=== PATIENT | male | born 1960 | race Caucasian/White ===

== ENCOUNTER 2019-04-14 13:52 | Outpatient (CLI) | payer BC, SELFPAY | END 2019-04-14 13:53 | disposition home or self-care (01) | LOC: ANHAUDIO 13:55 | PROVIDERS: PCP Family Medicine; Referring Provider Otolaryngology; Visit Provider Otolaryngology | DX: H93.19 Tinnitus, unspecified ear (principal); H90.3 Sensorineural hearing loss, bilateral | CPT/HCPCS: 92557; 92567 ==

== ENCOUNTER → 2020-02-05 10:28 | Outpatient (CLI) | payer BC, SELFPAY ==
--- NOTE | ~2020-02-05 | MR_ITS ---
EXAMINATION: MR brain/brain stem wo/w con DATE: 02/05/2020 11:10 INDICATION: Worsening migraine headache. TECHNIQUE: Magnetic resonance imaging (MRI) of the brain and brainstem was performed without and with 14 mL MultiHance intravenous contrast. Sequences included sagittal and axial T1-weighted FSE, axial diffusion-weighted FS EPI, axial T2*-weighted GRE, axial T2-weighted FLAIR Propeller, and axial T2-we ighted Propeller. Postcontrast sequences included axial and coronal T1-weighted FSE. Apparent diffusi on coefficient (ADC) maps were created. COMPARISON: Brain MRI 01/26/2012 FINDINGS: Again seen is a small focus of increased T2-weighted signal intensity in the right frontal lobe subcortical white matter, which is within normal limits as an isolated finding. There is no intr acranial hemorrhage, acute infarction, or abnormal intracranial mass lesion. The ventricles are adilia l in size. The paranasal sinuses are clear. The orbits are normal. The mastoid air cells are normal. IMPRESSION: 1. Normal brain. Reviewed, dictated and finalized at location B. OF SCHOOL HOURS CARE WORKER IMPRESSION: 1. Normal brain.
[2020-02-05 10:57] LABS: Estimated Glomerular Filt Rate > 60
== END ==
PROVIDERS: PCP Family Medicine; Visit Provider Family Medicine
DX: G43.909 Migraine, unspecified, not intractable, without status migrainosus (principal)
CPT/HCPCS: 70553; A9577

== ENCOUNTER 2021-10-07 11:28 | Emergency (ER) | payer BC, SELFPAY ==
[2021-10-07 11:40] VITALS: BP 185/92; PULSE 72; RESP 16; TEMP 36.7; O2SAT 100
--- NOTE | 2021-10-07 12:05 | ED.HA ---
HPI - Headache General Chief Complaint: Headache Stated Complaint: Headache Time Seen by Provider: 10/07/21 12:07 Mode of arrival: ambulatory Limitations: no limitations History of Present Illness HPI Narrative: 61-year-old male presents with concern for acute headache and he is out of his headache medication. He reports history of tension headaches and migraines. He reports current headache started 3 days ago. He reports his primary doctor cannot see him today and he has no refills left. He was advised to go to urgent care. He reports he plans to call his primary care doctor on Sunday. He denies weakness in any extremity, thunderclap headache, vision changes, vomiting. Reports this is a typical headache for him. MD elicited complaint: headache Related Data Allergies Allergy/AdvReac Type Severity Reaction Status Date / Time No Known Allergies Allergy Verified 08/30/21 11:35 Review of Systems Review of Systems: CONSTITUTIONAL: Denies malaise, chills, sweats, or fever. GASTROINTESTINAL: Denies vomiting, diarrhea NEUROLOGIC: Denies numbness, weakness. Reports headache. All systems reviewed & are unremarkable except as noted in HPI and below PMFSH Past Medical History Medical History Headaches, cluster Insomnia Surgical History Surgical History History of hernia surgery (~1979) S/P ACL surgery (~1990) Family History Family History Mother , 68 Aneurysm Social History Social History Social History: Patient drinks one cup of caffeine daily Alcohol intake: current Alcohol use details: Patient drinks a couple of drinks per week Substance use: never Substance use type: does not use Additional occupation/education comments: [employer] Gender identity (if verbalized by the patient): Male Sexual Orientation (if Verbalized by the Patient): Straight or Heterosexual Comments At time of signature, agree with nursing past medical, surgical, social and family history. There is no relevant family history pertinent to the presenting complaint Exam Narrative: GENERAL: Nontoxic-appearing and in no acute distress. HEAD: Normocephalic, atraumatic. EYES: PERRLA, sclera clear, and EOMI. No nystagmus. ENT: Nares clear. Mucous membranes moist. NECK: Supple. CHEST: No respiratory distress. Speaks in full sentences. HEART: Regular rate and rhythm. SKIN: Warm, dry, no visible rash. NEURO: Alert and oriented x3. No focal deficits. PSYCH: Normal mood and affect Course Course Emergency Course: Patient is aware of diagnosis, understands and agrees to treatment plan. Anticipatory guidance given. Patient agrees to follow-up as directed and is aware of reasons to seek care at the emergency department. Portions of this record may have been created with voice recognition software Level of Care: Express Care Visit Vital Signs Vital signs: Vital Signs Temperature 98.1 F 10/07/21 11:40 Pulse Rate 72 10/07/21 11:40 Respiratory Rate 16 10/07/21 11:40 Blood Pressure 185/92 H 10/07/21 11:40 Pulse Oximetry 100 10/07/21 11:40 Temperature 98.1 F 10/07/21 11:40 Pulse Rate 72 10/07/21 11:40 Respiratory Rate 16 10/07/21 11:40 Blood Pressure 185/92 H 10/07/21 11:40 Pulse Oximetry 100 10/07/21 11:40 Reviewed. MDM - Headache MDM Narrative Medical decision making narrative: Exam findings show no acute concerns or changes; patient is non-toxic appearing and is in no distress. Patient is appropriate for outpatient treatment and follow-up. Differential Diagnosis Differential diagnosis: Likely migraine, tension headache and headache Critical Care Time Critical Care Time Critical Care Time: No Discharge Plan Discharge Clinical Impression: Acute headache,
== END 2021-10-07 12:19 | disposition home or self-care (01) ==
PROVIDERS: Emergency Provider Nurse Practitioner; PCP Emergency Medicine
DX: R51.9 Headache, unspecified (principal)
CPT/HCPCS: 99213; G0463

== ENCOUNTER 2022-01-16 15:00 | Outpatient (RCR) | payer BC, SELFPAY ==
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
--- NOTE | 2021-12-21 10:25 | PCPTNOTE ---
faxed request to for Speech Therapy eval and treatment for pt; Roberto agrees to Speech Therapy services.
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
--- NOTE | 2022-01-24 13:11 | PCSTNOTE ---
The patient treatment was not able to be completed on 01/24 due to having to work. Will plan to continue treatment per plan of care.
--- NOTE | 2022-01-31 14:41 | STOPDC ---
Assessment and note entered by Lien Brown DESIGN ENGINEER [employer]INE EQUIPMENT Evaluation Information Assessment Status Discharge - Pt Not Presen Assessment ST Clinical Summary DISCHARGE SUMMARY Patient was seen for an evaluation only for cognitive function. Speech Therapy twice weekly for four weeks was requested and patient agreed that day but did report that January is his company's peak season. He was scheduled for two visits the next week, and called to cancel. Our clerical staff canceled one visit and patient did not show for the other visit. Patient explained that he thought he had explained to the clerical staff that he would not be able to return until after the holidays however they did not understand that he was cancelling all of the scheduled visits. He is being discharged at this time at his request due to inability to attend regularly. He may be re-evaluated in the future if he desires. Plan of Care ST Services Indicated No
== END 2022-02-02 08:48 | disposition home or self-care (01) ==
LOC: ANHST 15:00
PROVIDERS: PCP Emergency Medicine; Visit Provider Emergency Medicine
DX: S09.90XD Unspecified injury of head, subsequent encounter (principal)
CPT/HCPCS: 92523; 97110; 97162

== ENCOUNTER 2023-03-22 09:02 | Outpatient (RCR) | payer BC, SELFPAY ==
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
--- NOTE | 2023-03-22 10:10 | OPREHPOC ---
Outpatient Therapy Plan of Care This is a Multidisciplinary Plan of Care that may contain components documented by all disciplines (PT, OT, and ST.) PT Problem 1 PT Problem #1 Knowledge Deficit PT Goal 1 Goal Independent with performance of the home Rafael Maneuver to the left Target Visit 2 PT Problem 2 PT Problem #2 Impaired Vestibular Syste PT Goal 1 Goal Pt. will report no episodes of dizziness in a 1 week period. Target Visit 3 PT Goal 2 Goal Pt. will present with less than 5% deficit with the DHI. Target Visit 3
--- NOTE | 2023-03-30 10:03 | PCPTNOTE ---
Pt no showed visit today and has re-eval next visit.
--- NOTE | 2023-04-05 08:48 | PTOPPROGNS ---
Assessment and note entered by Robert Medina Discharge Information Assessment Status Discharge - Pt Not Presen Diagnosis dizziness, giddiness, tension type headaches Onset 03/15/23 Pt. was contacted via telephone and stated that he was doing well and would like to be discharged at this time. Assessment PT Clinical Summary Pt. only attended his initial evaluation on . He did not show for his scheduled appointment on this date. Contacted the pt. via phone and he stated he was doing well with the exercises and his dizziness had subsided. At this time pt. will be discharged from our care. Plan of Care Pt. will be discharged from our care. PT Services Indicated No These treatments will address the objective and functional deficits as defined above. The patient will be advanced safely and appropriately in order for the patient to progress towards his/her prior level of function. Additional exercises will be introduced and as well as a comprehensive home exercise program upon discharge, if needed, ?to ensure carryover of functional gains achieved in the clinic. This treatment plan has been reviewed and agreement upon by the patient.
== END 2023-04-05 09:02 | disposition home or self-care (01) ==
LOC: ANHPT 09:02
PROVIDERS: Visit Provider Student in an Organized Health Care Education/Training Program
DX: G44.209 Tension-type headache, unspecified, not intractable (principal); H81.12 Benign paroxysmal vertigo, left ear
CPT/HCPCS: 95992; 97161; 99199

== ENCOUNTER → 2023-03-24 08:02 | Outpatient (CLI) | payer BC, SELFPAY ==
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
== END ==
PROVIDERS: PCP Student in an Organized Health Care Education/Training Program; Visit Provider Student in an Organized Health Care Education/Training Program
DX: R42 Dizziness and giddiness (principal); R93.0 Abnormal findings on diagnostic imaging of skull and head, not elsewhere classified
CPT/HCPCS: 70551

== ENCOUNTER 2023-05-21 06:55 | Outpatient (CLI) | payer BC, SELFPAY ==
--- NOTE | ~2023-05-21 | CT_ITS ---
EXAMINATION: CTA brain carotid DATE: 05/21/2023 07:22 INDICATION: Aneurysm of unspecified site. TECHNIQUE: Computed tomographic angiography (CTA) of the head was performed without and with 100 mL O mnipaque-350 intravenous contrast. CTA of the neck was performed with intravenous contrast. Automated exposure control and iterative reconstruction technique were employed. The dose-length product was 1 653.35 mGy-cm. Maximum intensity projection and volume rendered 3D-reconstructions were created by tye raman technologist on a separate workstation. COMPARISON: Brain MRI 03/24/2023 FINDINGS: HEAD CTA: There is no intracranial hemorrhage, acute infarction, or abnormal intracranial mass lesion . The ventricles are normal in size. There is mild mucosal thickening in the paranasal sinuses. The m astoid air cells are normal. The orbits are normal. The vertebral arteries are codominant. There is n o significant stenosis of basilar artery or the posterior cerebral arteries. There is no significant stenosis of the intracranial internal carotid arteries or anterior or middle cerebral arteries. Anter ior communicating artery is normal. The posterior communicating arteries are normal. There is no aneu rysm. NECK CTA: There are no pathologically enlarged lymph nodes. There is no significant stenosis of the v ertebral arteries. There is mild plaque in proximal left internal carotid artery. There is 0% stenosi s of the proximal right internal carotid artery relative to normal distal artery lumen diameter (NASC ET criteria). There is 0% stenosis of the proximal left internal carotid artery relative to normal di stal artery lumen diameter. There is mild cervical spondylosis. IMPRESSION: 1. Normal brain. 2. No aneurysm or significant intracranial arterial stenosis. 3. 0% stenosis of the proximal internal carotid arteries relative to normal distal artery lumen diame ters (NASCET criteria). Reviewed, dictated and finalized at location E. IMPRESSION: 1. Normal brain. 2. No aneurysm or significant intracranial arterial stenosis. 3. 0% stenosis of the proximal internal carotid arteries relative to normal dis shweta artery lumen diameters (NASCET criteria).
[2023-05-21 07:13] LABS: Estimated Glomerular Filt Rate 51
== END 2023-05-21 06:56 | disposition home or self-care (01) ==
LOC: ANHIMG 06:57
PROVIDERS: PCP Student in an Organized Health Care Education/Training Program; Visit Provider Student in an Organized Health Care Education/Training Program
DX: I72.9 Aneurysm of unspecified site (principal)
CPT/HCPCS: 70496; 70498; Q9967

== ENCOUNTER 2023-07-22 15:00 | Emergency (ER) | payer BC, SELFPAY ==
--- NOTE | 2023-07-22 15:03 | ED.GENADULT ---
HPI - General Adult General Chief complaint: Headache Stated complaint: Headache Time Seen by Provider: 07/22/23 15:46 Source: patient, RN notes reviewed and old records reviewed Mode of arrival: ambulatory Limitations: no limitations History of Present Illness HPI narrative: 62-year-old male presents to the [facility] with complaints of his typical migraine. States he tried calling his primary on to get a refill of his medication. Was unable to do so due to the holiday weekend. Patient has been taking Excedrin with no relief Related Data Home Medications Medication Instructions Recorded Confirmed trazodone 50 mg tablet 50 mg PO QHS 03/14/23 07/22/23 amitriptyline 50 mg tablet 50 mg PO DAILY 07/22/23 07/22/23 butalbital 50 mg-acetaminophen 325 1 cap PO DIRECTED 07/22/23 07/22/23 mg-caffeine 40 mg-codeine 30 mg cap sildenafil 50 mg tablet (Viagra) 50 mg PO DAILY PRN sexual activity 07/22/23 07/22/23 Allergies Allergy/AdvReac Type Severity Reaction Status Date / Time No Known Allergies Allergy Verified 07/22/23 15:18 Review of Systems Review of Systems: All systems reviewed & are unremarkable except as noted in HPI and below Constitutional: Constitutional: Reports no additional constitutional complaints Eyes: Eyes: Reports no additional eye complaints ENT: Reports system reviewed and no additional complaints, except as documented Cardiovascular: Cardiovascular: Reports no additional cardiovascular complaints, Denies chest pain and Denies dyspnea Respiratory: Respiratory: Reports no additional respiratory complaints, Denies chest congestion, Denies cough and Denies dyspnea Gastrointestinal: Gastrointestinal: Reports no additional gastrointestinal complaints, Denies abdominal pain, Denies nausea and Denies vomiting Musculoskeletal: Musculoskeletal: Reports no additional musculoskeletal complaints Integumentary/Breasts: Skin/Breast: Reports system reviewed and no additional complaints, except as docu Neurologic: Reports as per HPI Psychiatric: Psychiatric: Reports no additional psychiatric complaints Allergic/Immunologic: Allergic/Immunologic: Reports no additional allergic/immunologic complaints [facility] Past Medical History Medical History Headaches, cluster Insomnia Migraine Surgical History Surgical History History of hernia surgery (~1979) S/P ACL surgery (~1990) Family History Family History Mother , 68 Aneurysm Social History Social History Social History: Patient drinks one cup of caffeine daily Smoking status: Smoker, status unknown Alcohol intake: current Alcohol use details: Patient drinks a couple of drinks per week Substance use: never Substance use type: does not use Do You Feel Safe in your Home?: Yes Lack of Transportation: No Lack of Food: Never True Current Housing: I Have Housing Concerned About Future Housing: No Difficulty Paying Gas/Electric Bills: No Difficulty Paying for Meds: No Currently Unemployed: No Education: Trade/Vocational Certificate Difficulty w/ Childcare or Family Care: No Occupation/Education: occupation Additional occupation/education comments: [employer] Gender identity (if verbalized by the patient): Male Sexual Orientation (if Verbalized by the Patient): Straight or Heterosexual Comments At the time of my signature, I reviewed and agree with the nursing past medical, surgical, social, and family history. There is no relevant family history pertinent to the patient complaint. Exam Const: General: cooperative, healthy appearing, comfortable, no acute distress, well developed, alert and well nourished Nutritional Appearance: well nourished Orientation/consciousness: patient oriented
[2023-07-22 15:12] VITALS: BP 178/100; PULSE 92; RESP 16; TEMP 37.1; O2SAT 100
== END 2023-07-22 16:05 | disposition home or self-care (01) ==
PROVIDERS: Emergency Provider Nurse Practitioner; PCP Nurse Practitioner Family
DX: G43.909 Migraine, unspecified, not intractable, without status migrainosus (principal)
CPT/HCPCS: 99213; G0463